=== PATIENT | female | born 1960 | race Caucasian/White ===

== ENCOUNTER 2025-02-15 13:04 | Emergency (ER) | payer SELFPAY ==
[~2025-02-15] VITALS: Ht 157.5 cm; Wt 92.0 kg
[2025-02-15 13:15] VITALS: O2SAT 98
[2025-02-15] MEDS: LIDOCAINE 5% PATCH TOP STA (16:09)
[2025-02-15] MEDS: KETOROLAC 30MG/ML VIAL IM ONE (16:10)
[2025-02-15] MEDS: CYCLOBENZAPRINE 10MG TABLET PO ONE (16:10)
[2025-02-15] MEDS ORDERED: KETO10TA2 MT (16:40)
[2025-02-15] MEDS ORDERED: CYCL10TA21 MT (16:40)
[2025-02-15 17:00] VITALS: BP 145/80; PULSE 65; RESP 12; TEMP 36.8; O2SAT 100
== END 2025-02-15 17:12 | disposition home or self-care (01) ==
LOC: EDBD 13:04 → ER 14:02
DX: G89.29 Other chronic pain (principal); M47.817 Spondylosis without myelopathy or radiculopathy, lumbosacral region; Z88.5 Allergy status to narcotic agent
CPT/HCPCS: 72100; 96372; 99283; J1885; Z7610